=== PATIENT | female | born 1955 | race Caucasian/White ===

== ENCOUNTER → 2021-08-10 | Outpatient (CLI) | payer OTHER ==
[~2021-08-10] MED LIST: ALBU8.5H; AMLO1TAB24; BENR30AU; BUDE0.5S6; CETI10CH PO; DEXI60CA2; ECOT81TA5 PO; FAMO40TA3; LANTINJ4 SQ; LEVO125T4; MONT10TA10; NOVOINJ3; OLME20TA2; SIMV10TA21; SPIR12.9; SYMB16INH; VITA1CAP4 PO
== END ==
LOC: EDBD → M LABSMTC 10:35
PROVIDERS: ATTEND Anesthesiology
DX: Z01.812 Encounter for preprocedural laboratory examination (principal); Z20.822 Contact with and (suspected) exposure to COVID-19

== ENCOUNTER 2021-08-15 07:25 | Day surgery (SDC) | payer OTHER ==
[~2021-08-15] VITALS: Ht 162.6 cm; Wt 92.0 kg
[~2021-08-15 07:25] MED LIST changes: +NS 1,000 ML IV ONE
[2021-08-15] MEDS ORDERED: propofoL 200 MG/20 ML VIAL As Ordered ONE (08:56)
[2021-08-15] MEDS ORDERED: LIDOCAINE 2% 100MG/5ML SDV (FOR ANES.) As Ordered ONE (08:56)
--- NOTE | 2021-08-15 09:16 | ROOR ---
Patient Name: Harriet Rascon Procedure Date: 08/15/2021 8:49 AM Date of : 1955 Age: 66 Room: [facility] Gender: Female Note Status: Finalized Procedure: Total Colonoscopy to Cecum + Biopsy Polypectomy Indications: Chronic idiopathic constipation Providers: Osman Olson MD Referring MD: SRI Portillo Requesting Provider: Medicines: Monitored Anesthesia Care Complications: No immediate complications. Procedure: Pre-Anesthesia Assessment: - The heart rate, respiratory rate, oxygen saturations, blood pressure, adequacy of pulmonary ventilation, and response to care were monitored throughout the procedure. The Colonoscope was introduced through the anus and advanced to the cecum, identified by appendiceal orifice and ileocecal valve. The colonoscopy was performed without difficulty. The patient tolerated the procedure well. The quality of the bowel preparation was excellent. Findings: The perianal and digital rectal examinations were normal. Non-bleeding internal hemorrhoids were found during retroflexion. The hemorrhoids were small and Grade I (internal hemorrhoids that do not prolapse). A small polyp was found in the cecum. The polyp was sessile. The polyp was removed with a cold biopsy forceps. Resection and retrieval were complete. The exam was otherwise without abnormality on direct and retroflexion views. Impression: - Non-bleeding internal hemorrhoids. - One small polyp in the cecum, removed with a cold biopsy forceps. Resected and retrieved. - The examination was otherwise normal on direct and retroflexion views. - The exam was otherwise normal to the cecum. Recommendation: - Patient has a contact number available for emergencies. The signs and symptoms of potential delayed complications were discussed with the patient. Return to normal activities tomorrow. Written discharge instructions were provided to the patient. - High fiber diet. - Discharge patient to home. - Continue present medications. - Await pathology results. - Telephone GI clinic for pathology results in 1 week. - Repeat colonoscopy in 5 years for surveillance based on pathology results. - Return to referring physician. - The findings and recommendations were discussed with the patient. Procedure Code(s): --- Professional --- 76012, Colonoscopy, flexible; with biopsy, single or multiple Diagnosis Code(s): --- Professional --- K64.0, First degree hemorrhoids K63.5, Polyp of colon K59.04, Chronic idiopathic constipation CPT copyright 2019 [employer]. All rights reserved. The codes documented in this report are preliminary and upon rod tape operator review may be revised to meet current compliance requirements. Osman Olson MD Osman Olson MD 08/15/2021 9:16:21 AM Electronically signed by Osman Olson MD Number of Addenda: 0 Note Initiated On: 08/15/2021 8:49 AM Estimated Blood Loss: Estimated blood loss: none.
[2021-08-15 09:41] VITALS: BP 143/91
== END 2021-08-15 09:43 | disposition home or self-care (01) ==
LOC: M OPP 07:25 → EDBD 08:30 → EDUNIT# 08:30 → M OPP 09:43
PROVIDERS: ATTEND Internal Medicine Gastroenterology
DX: D12.0 Benign neoplasm of cecum (principal); K64.0 First degree hemorrhoids; K59.04 Chronic idiopathic constipation; Z79.4 Long term (current) use of insulin; Z79.82 Long term (current) use of aspirin; Z87.891 Personal history of nicotine dependence

== ENCOUNTER 2023-04-15 10:43 | Day surgery (SDC) | payer OTHER ==
[~2023-04-15] VITALS: Ht 162.6 cm; Wt 88.3 kg
[~2023-04-15 10:43] MED LIST changes: -ALBU8.5H; +ALBU8.5H INH; +BUDE10.7 INH; +CALC600T18 PO; +CETI-24 PO; +ESOM1CAP5 PO; +FASE30IN SC; +INSUH10VL SC; +LANTINJ4 SC; +METO10TA2 PO; -MONT10TA10; +MONT10TA97; +OLME40TA PO; +ROSU10TA6 PO; +SEMA1PEN2 SQ; +SYNT125T PO; +VITA100093 PO; +VITMTA PO; +[UNRECOGNIZED DRUG - REMARK] IV
[2023-04-15] MEDS ORDERED: GLYCOPYRROLATE INJ 0.2 MG/ML 2 ML VIAL As Ordered ONE (12:42)
[2023-04-15] MEDS ORDERED: LIDOCAINE 2% 100MG/5ML SDV (FOR ANES.) As Ordered ONE (12:42)
[2023-04-15] MEDS ORDERED: propofoL 200 MG/20 ML VIAL As Ordered ONE (12:42)
[2023-04-15 12:57] VITALS: TEMP 97.2
[2023-04-15 13:15] VITALS: BP 135/79; O2SAT 96
== END 2023-04-15 13:32 | disposition home or self-care (01) ==
LOC: M OPP 10:43
PROVIDERS: ATTEND Internal Medicine Gastroenterology
DX: K44.9 Diaphragmatic hernia without obstruction or gangrene (principal); K29.70 Gastritis, unspecified, without bleeding; R13.10 Dysphagia, unspecified; Z87.891 Personal history of nicotine dependence; Z79.02 Long term (current) use of antithrombotics/antiplatelets; Z79.4 Long term (current) use of insulin; Z79.52 Long term (current) use of systemic steroids; Z79.899 Other long term (current) drug therapy; Z88.0 Allergy status to penicillin

== ENCOUNTER 2024-08-10 06:04 | Day surgery (SDC) | payer OTHER ==
[~2024-08-10] VITALS: Ht 162.6 cm; Wt 80.6 kg
[~2024-08-10 06:04] MED LIST changes: +ESOM1CAP20 PO; -ESOM1CAP5 PO; -NS 1,000 ML IV ONE; -OLME20TA2; +OLME20TA50; -ROSU10TA6 PO; +ROSU10TA61 PO; +SUCR1ORA; +SUCR1ORA2 PO; +SYMB16INH INH
[2024-08-10] MEDS ORDERED: LR 1,000 ML IV SCH (06:45)
[2024-08-10] MEDS ORDERED: DULC5TAB PO (06:49)
[2024-08-10] MEDS ORDERED: propofoL 200 MG/20 ML VIAL As Ordered ONE (07:23)
[2024-08-10] MEDS ORDERED: LIDOCAINE 2% 100MG/5ML SDV (FOR ANES.) As Ordered ONE (07:23)
[2024-08-10] MEDS ORDERED: ONDANSETRON 4MG 2ML VIAL As Ordered ONE (07:23)
[2024-08-10] MEDS ORDERED: fentaNYL 100 MCG/2 ML INJECTION As Ordered ONE (07:23)
[2024-08-10] MEDS ORDERED: MIDAZOLAM INJ 2MG/2ML VIAL As Ordered ONE (07:24)
[2024-08-10] MEDS ORDERED: dexmedeTOMIDine (4MCG/ML)200MCG/50ML BTL (PRECEDEX) As Ordered ONE (07:24)
[2024-08-10] MEDS: ceFAZolin SOD 2 GM in IV 1 EA IV ONE (07:50)
[2024-08-10] MEDS: POVIDONE-IODINE 5% OPHTH PREP SOL 30ML As Ordered ONE (07:50)
[2024-08-10] MEDS: LIDOCAINE 2% W/EPINEPHRINE 20ML VIAL **PRES FREE As Ordered ONE (08:00)
[2024-08-10] MEDS ORDERED: ACETAMINOPHEN 1000MG 100ML IV BAG As Ordered ONE (08:13)
[2024-08-10] MEDS: BACITRACIN OINTMENT 30GM TUBE As Ordered ONE (08:28)
[2024-08-10 08:59] VITALS: BP 127/74; TEMP 97; O2SAT 99
== END 2024-08-10 09:04 | disposition home or self-care (01) ==
LOC: M SDC 06:04
PROVIDERS: ATTEND Plastic Surgery Surgery of the Hand
DX: L72.0 Epidermal cyst (principal); I10 Essential (primary) hypertension; E78.5 Hyperlipidemia, unspecified; E11.9 Type 2 diabetes mellitus without complications; E03.9 Hypothyroidism, unspecified; Z79.4 Long term (current) use of insulin; J44.9 Chronic obstructive pulmonary disease, unspecified; Z79.51 Long term (current) use of inhaled steroids; Z79.899 Other long term (current) drug therapy; K57.92 Diverticulitis of intestine, part unspecified, without perforation or abscess without bleeding; Z87.891 Personal history of nicotine dependence; Z88.0 Allergy status to penicillin
CPT/HCPCS: 11442; 88305; J0131; J0690; J2250; J2405; J3010